=== PATIENT | male | born 1955 | race Caucasian/White ===

== ENCOUNTER 2017-08-23 13:36 | Emergency (ER) | payer BC ==
[2017-08-23] MEDS: IBUPROFEN 600 MG TAB PO (14:06)
[2017-08-23 15:20] LABS: ADD UMIC NO; UR ASCORBIC ACID NEGATIVE (NEGATIVE); UR BILIRUBIN (Dip) NEGATIVE (NEGATIVE); UR BLOOD (Dip) NEGATIVE (NEGATIVE); UR CLARITY CLEAR (CLEAR); UR COLOR YELLOW (YELLOW); UR GLUCOSE (Dip) NEGATIVE (NEGATIVE); UR KETONES (Dip) NEGATIVE (NEGATIVE); UR LEUKOCYTE ESTERASE (Dip) NEGATIVE Leu/ul (NEGATIVE); UR NITRITE (Dip) NEGATIVE (NEGATIVE); UR TOTAL PROTEIN (Dip) NEGATIVE (NEGATIVE); UR UROBILINOGEN (Dip) NEGATIVE (NEGATIVE)
== END 2017-08-23 16:00 | disposition home or self-care (01) ==
LOC: FTE 13:36
DX: R33.9 Retention of urine, unspecified (principal)
CPT/HCPCS: 51702; 81003; 99283-25

== ENCOUNTER 2018-02-22 12:18 | Emergency (ER) | payer BC ==
[2018-02-22 13:15] LABS: ADD MAN DIFF? NO
[2018-02-22 13:24] LABS: BASOPHIL # 0.1 10^3/ul (0.0-0.1); BASOPHILS % 0.4 % (0.0-2.0); EOSINOPHILS % 0.2 % (0.0-7.0); HEMATOCRIT 46.8 % (42.0-52.0); HEMOGLOBIN 15.8 g/dl (14.0-18.0); LYMPHOCYTES # 1.3 10^3/ul (0.8-2.9); LYMPHOCYTES % 10.1 % (15.0-51.0); MEAN CORPUSCULAR HEMOGLOBIN 29.6 pg (29.0-33.0); MEAN CORPUSCULAR HGB CONC 33.8 g/dl (32.0-37.0); MEAN CORPUSCULAR VOLUME 87.6 fl (82.0-101.0); MEAN PLATELET VOLUME 10.2 fl (7.4-10.4); MONOCYTE # 0.6 10^3/ul (0.3-0.9); NEUTROPHIL # 10.5 10^3/ul (1.6-7.5); PLATELET COUNT 231 10^3/UL (140-415); RED BLOOD COUNT 5.34 10^6/ul (4.70-6.10); RED CELL DISTRIBUTION WIDTH 12.7 % (11.5-14.5)
[2018-02-22 13:24] LABS: WHITE BLOOD COUNT 12.5 10^3/ul (4.8-10.8)
[2018-02-22 13:37] LABS: ALANINE AMINOTRANSFERASE 39 IU/L (13-69); ALBUMIN/GLOBULIN RATIO 0.95; ALKALINE PHOSPHATASE 88 IU/L (42-121); AMYLASE 100 U/L (11-123); ANION GAP 12 (8-16); ASPARTATE AMINO TRANSFERASE 31 IU/L (15-46); BILIRUBIN,INDIRECT 0.6 mg/dl (0-1.1); BILIRUBIN,TOTAL 0.6 mg/dl (0.2-1.3); BLOOD UREA NITROGEN 22 mg/dl (7-20); CALCIUM 9.4 mg/dl (8.4-10.2); CARBON DIOXIDE 29 mmol/L (21-31); CHLORIDE 105 mmol/L (97-110); CREATININE 0.78 mg/dl (0.61-1.24); GLUCOSE 138 mg/dl (70-220); LIPASE 63 U/L (23-300); POTASSIUM 4.2 mmol/L (3.5-5.1); SODIUM 142 mmol/L (135-144); TOTAL PROTEIN 8.2 g/dl (6.1-8.1)
[2018-02-22 14:19] LABS: ADD UMIC NO; UR ASCORBIC ACID NEGATIVE (NEGATIVE); UR BILIRUBIN (Dip) NEGATIVE (NEGATIVE); UR BLOOD (Dip) NEGATIVE (NEGATIVE); UR CLARITY CLEAR (CLEAR); UR COLOR YELLOW (YELLOW); UR GLUCOSE (Dip) NEGATIVE (NEGATIVE); UR KETONES (Dip) NEGATIVE (NEGATIVE); UR LEUKOCYTE ESTERASE (Dip) NEGATIVE Leu/ul (NEGATIVE); UR NITRITE (Dip) NEGATIVE (NEGATIVE); UR SPECIFIC GRAVITY (Dip) 1.013 (1.003-1.030); UR TOTAL PROTEIN (Dip) NEGATIVE (NEGATIVE); UR UROBILINOGEN (Dip) NEGATIVE (NEGATIVE)
== END 2018-02-22 16:00 | disposition home or self-care (01) ==
LOC: FTE 12:18
DX: N40.0 Benign prostatic hyperplasia without lower urinary tract symptoms (principal)
CPT/HCPCS: 36415; 51702; 76775; 80053; 81003; 82150; 83690; 85025; 87086; 99284-25

== ENCOUNTER 2018-10-19 10:48 | Inpatient (IN) | payer BC ==
[2018-10-19] MEDS ORDERED: PROPOFOL 20 ML (11:58)
[2018-10-19] MEDS ORDERED: MIDAZOLAM 1 MG/ML 2 ML INJ (11:58)
[2018-10-19] MEDS ORDERED: FENTAnyl 50 MCG/ML VIAL (11:58)
[2018-10-19] MEDS ORDERED: LIDOCAINE 2% (SDV) 5 ML INJ (11:58)
[2018-10-19] MEDS ORDERED: CIPROFLOXACIN 400MG/D5W 200 ML (12:31)
[2018-10-19 12:33] LABS: ADD MAN DIFF? NO
[2018-10-19 12:35] LABS: BASOPHIL # 0.1 10^3/ul (0.0-0.1); BASOPHILS % 0.8 % (0.0-2.0); EOSINOPHILS # 0.1 10^3/ul (0.0-0.5); EOSINOPHILS % 1.9 % (0.0-7.0); HEMATOCRIT 43.7 % (42.0-52.0); HEMOGLOBIN 14.5 g/dl (14.0-18.0); LYMPHOCYTES % 26.9 % (15.0-51.0); MEAN CORPUSCULAR HEMOGLOBIN 29.2 pg (29.0-33.0); MEAN CORPUSCULAR HGB CONC 33.2 g/dl (32.0-37.0); MEAN CORPUSCULAR VOLUME 88.1 fl (82.0-101.0); MEAN PLATELET VOLUME 10.2 fl (7.4-10.4); MONOCYTE # 0.6 10^3/ul (0.3-0.9); MONOCYTES % 7.7 % (0.0-11.0); NEUTROPHIL # 4.7 10^3/ul (1.6-7.5); NEUTROPHILS % 62.4 % (39.0-77.0); PLATELET COUNT 221 10^3/UL (140-415); RED BLOOD COUNT 4.96 10^6/ul (4.70-6.10); RED CELL DISTRIBUTION WIDTH 12.6 % (11.5-14.5)
[2018-10-19 12:35] LABS: WHITE BLOOD COUNT 7.6 10^3/ul (4.8-10.8)
[2018-10-19 12:54] LABS: ALANINE AMINOTRANSFERASE 35 IU/L (13-69); ALBUMIN 4.2 g/dl (3.3-4.9); ALBUMIN/GLOBULIN RATIO 1.16; ALKALINE PHOSPHATASE 81 IU/L (42-121); ANION GAP 7 (5-13); ASPARTATE AMINO TRANSFERASE 26 IU/L (15-46); BILIRUBIN,INDIRECT 0.5 mg/dl (0-1.1); BILIRUBIN,TOTAL 0.5 mg/dl (0.2-1.3); CALCIUM 9.1 mg/dl (8.4-10.2); CARBON DIOXIDE 30 mmol/L (21-31); CHLORIDE 105 mmol/L (97-110); CREATININE 0.79 mg/dl (0.61-1.24); Estimated GFR > 60 mL/min (>60); GLUCOSE 104 mg/dl (70-220); INR 0.97; POTASSIUM 4.4 mmol/L (3.5-5.1); SODIUM 142 mmol/L (135-144); TOTAL PROTEIN 7.8 g/dl (6.1-8.1)
[2018-10-19 12:55] LABS: PARTIAL THROMBOPLASTIN TIME 28.4 Sec (23.0-35.0)
[2018-10-19 12:56] LABS: BLOOD UREA NITROGEN 26 mg/dl (7-20)
[2018-10-19] MEDS ORDERED: DEXAMETHASONE 4 MG/ML 5 ML INJ (12:59)
[2018-10-19] MEDS ORDERED: METOCLOPRAMIDE 10 MG INJ (12:59)
[2018-10-19] MEDS ORDERED: FAMOTIDINE 20 MG INJ (12:59)
[2018-10-19] MEDS ORDERED: ONDANSETRON 4 MG INJ (12:59)
[2018-10-19] MEDS ORDERED: EPHEDrine 25 MG/5 ML SYG (13:13)
[2018-10-19] MEDS ORDERED: OXYCODONE/ACETAMINOPHEN (5/325) TAB PO ×2 (13:30)
[2018-10-19] MEDS ORDERED: MIDAZOLAM 1 MG/ML 2 ML INJ IV (13:30)
[2018-10-19] MEDS ORDERED: MEPERIDINE 25 MG INJ IV (13:30)
[2018-10-19] MEDS ORDERED: hydrALAzine 20 MG INJ IV (13:30)
[2018-10-19] MEDS ORDERED: LABETALOL HCL 20MG INJ IV (13:30)
[2018-10-19] MEDS ORDERED: HYDROmorphONE 1 MG/5 ML IV SYRINGE IV (13:30)
[2018-10-19] MEDS ORDERED: ONDANSETRON 4 MG INJ IV (13:30)
[2018-10-19] MEDS ORDERED: ROCURONIUM 50 MG INJ (13:35)
[2018-10-19] MEDS ORDERED: GLYCOPYRROLATE 0.4 MG INJ (13:41)
[2018-10-19] MEDS ORDERED: NEOSTIGMINE 3 MG/3 ML SYRINGE (13:41)
[2018-10-19] MEDS ORDERED: PHENYLephrine (100 MCG/ML) 10ML SYG (15:08)
[2018-10-19] MEDS ORDERED: DOCUSATE SODIUM 100 MG CAP PO (16:00)
[2018-10-19 16:06] LABS: HEMOGLOBIN 11.6 g/dl (14.0-18.0)
[2018-10-19 16:25] LABS: ANION GAP 4 (5-13); BLOOD UREA NITROGEN 25 mg/dl (7-20); CALCIUM 7.7 mg/dl (8.4-10.2); CARBON DIOXIDE 27 mmol/L (21-31); CHLORIDE 108 mmol/L (97-110); CREATININE 0.84 mg/dl (0.61-1.24); Estimated GFR > 60 mL/min (>60); GLUCOSE 144 mg/dl (70-220); POTASSIUM 3.9 mmol/L (3.5-5.1); SODIUM 139 mmol/L (135-144)
[2018-10-19] MEDS: HYDROmorphONE 1 MG/5 ML IV SYRINGE IV ×2 (16:33→16:40)
[2018-10-19] MEDS: HYDROCODONE/APAP (5/325) TAB PO (17:57)
[2018-10-19] MEDS: CIPROFLOXACIN 500 MG TAB PO (17:58)
[2018-10-19] MEDS: DEXTROSE 5%-0.45% NACL 1,000 ML IV (17:59)
[2018-10-19] MEDS: CIPROFLOXACIN 400MG/D5W 200 ML IVPB (18:00)
[2018-10-19] MEDS: LACTATED RINGER'S 1,000 ML IV (18:00)
[2018-10-19] MEDS: DULOXETINE 30 MG CAP DR PO (20:03)
[2018-10-19] MEDS: FERROUS SULFATE (EC) 325 MG TAB PO (20:03)
[2018-10-19] MEDS: traZODone 50 MG TAB PO (20:03)
[2018-10-19] MEDS: DOCUSATE SODIUM 100 MG CAP PO (20:03)
[2018-10-19] MEDS: LORAZEPAM 0.5 MG TAB PO (20:04)
[2018-10-20] MEDS: HYDROCODONE/APAP (5/325) TAB PO (01:36)
[2018-10-20] MEDS: CIPROFLOXACIN 500 MG TAB PO (05:06)
[2018-10-20] MEDS: DEXTROSE 5%-0.45% NACL 1,000 ML IV ×2 (05:08→11:39)
[2018-10-20 05:20] LABS: ADD MAN DIFF? NO
[2018-10-20 05:23] LABS: BASOPHILS % 0.1 % (0.0-2.0); HEMATOCRIT 34.5 % (42.0-52.0); HEMOGLOBIN 11.5 g/dl (14.0-18.0); LYMPHOCYTES # 1.1 10^3/ul (0.8-2.9); LYMPHOCYTES % 9.3 % (15.0-51.0); MEAN CORPUSCULAR HEMOGLOBIN 29.5 pg (29.0-33.0); MEAN CORPUSCULAR HGB CONC 33.3 g/dl (32.0-37.0); MEAN CORPUSCULAR VOLUME 88.5 fl (82.0-101.0); MEAN PLATELET VOLUME 10.6 fl (7.4-10.4); MONOCYTE # 0.8 10^3/ul (0.3-0.9); MONOCYTES % 6.6 % (0.0-11.0); NEUTROPHIL # 9.6 10^3/ul (1.6-7.5); NEUTROPHILS % 83.6 % (39.0-77.0); PLATELET COUNT 219 10^3/UL (140-415)
[2018-10-20 05:23] LABS: WHITE BLOOD COUNT 11.4 10^3/ul (4.8-10.8)
[2018-10-20] MEDS: TAMSULOSIN (SR) 0.4 MG CAP PO (08:55)
[2018-10-20] MEDS: FERROUS SULFATE (EC) 325 MG TAB PO (08:55)
[2018-10-20] MEDS: DOCUSATE SODIUM 100 MG CAP PO (08:55)
[2018-10-20] MEDS: DULOXETINE 30 MG CAP DR PO (08:55)
[2018-10-20] MEDS ORDERED: FINASTERIDE 5 MG TAB PO (09:00)
[2018-10-20] MEDS: LORAZEPAM 0.5 MG TAB PO (09:03)
[2018-10-20] MEDS: MAGNESIUM HYDROXIDE 30ML CUP PO (10:26)
[2018-10-20] MEDS: LACTATED RINGER'S 1,000 ML IV (12:30)
== END 2018-10-20 15:04 | disposition home or self-care (01) | DRG 714 ==
LOC: REC 10:48 → MS1 16:31
PROC: 0VT08ZZ Resection of Prostate, Via Natural or Artificial Opening Endoscopic (ICD-10-PCS; principal; 2018-10-19 12:30)
DX: N40.1 Benign prostatic hyperplasia with lower urinary tract symptoms (principal); R33.8 Other retention of urine; F32.9 Major depressive disorder, single episode, unspecified
CPT/HCPCS: 80048; 80053; 85014; 85018; 85025; 85610; 85730; 88305